=== PATIENT | female | born 1970 ===

== ENCOUNTER 2020-04-28 20:45 | Emergency (ER) | payer SELFPAY ==
--- NOTE | 2020-04-28 20:50 | NUR ---
REGISTRATION CALLED NURSE DESK TO NOTIFY PT LEFT BECAUSE "SHE COULDN'T HAVE A VISITOR".
== END 2020-04-28 20:53 | disposition left against medical advice (07) ==
LOC: ER 20:52
DX: R10.9 Unspecified abdominal pain (principal); R11.10 Vomiting, unspecified; R19.7 Diarrhea, unspecified